=== PATIENT | female | born 1940 | race African-American/Black ===

== ENCOUNTER 2019-02-09 09:03 | Outpatient (CLI) | payer MEDICARE, BC ==
--- NOTE | 2019-02-09 10:08 | RAD ---
2 VIEW CHEST: Date: 02/09/19 COMPARISON: 02/12/17. INDICATION: Dyspnea. FINDINGS: There is stable size of cardiomediastinal silhouette. The lungs are hyperinflated with interstitial p rominence bilaterally. There are safety pins overlying the patient's upper abdomen at and to the righ t of midline. This may be related to pins on the patient's waistband region. The osseous structures r eveal degenerative changes. IMPRESSION: 1. Findings of mild COPD. 2. Borderline size cardiac silhouette. 3. No lobar consolidation. POS: C
== END 2019-02-09 09:04 | disposition home or self-care (01) ==
LOC: RAD 09:03
PROVIDERS: ATTEND Internal Medicine Critical Care Medicine
DX: R06.00 Dyspnea, unspecified (principal); J44.9 Chronic obstructive pulmonary disease, unspecified
CPT/HCPCS: 71046

== ENCOUNTER 2021-02-06 09:29 | Outpatient (CLI) | payer MEDICARE, BC | END 2021-02-06 09:30 | disposition home or self-care (01) | LOC: BICRAD 09:29 | PROVIDERS: ATTEND Internal Medicine Critical Care Medicine | DX: R06.00 Dyspnea, unspecified (principal) | CPT/HCPCS: 71046 ==